=== PATIENT | male | born 1940 | race Caucasian/White ===

== ENCOUNTER 2020-02-12 08:48 | Emergency (ER) | payer MEDICARE, SELFPAY ==
--- NOTE | ~2020-02-12 | XR_ITS ---
EXAMINATION: XR knee LT 2V INDICATION: Left knee pain TECHNIQUE: Two views of the left knee are obtained. COMPARISON: 05/05/2016 FINDINGS: There is no fracture. Chronic moderate osteoarthritis of the knee is stable. Also stable is a moderate size joint effusion. IMPRESSION: 1. Chronic moderate knee joint effusion without acute osseous findings. Reviewed, dictated and finalized at location A.
[2020-02-12 09:14] VITALS: BP 115/80; PULSE 90; RESP 20; TEMP 36.6; O2SAT 98
--- NOTE | 2020-02-12 09:17 | ED.LOWEXIN ---
HPI - Extremity Injury (Lower) General Chief Complaint: Extremity Injury, Lower Stated Complaint: KNEE PAIN Source: patient Mode of arrival: ambulatory Limitations: no limitations History of Present Illness HPI Narrative: Sin 79-year-old gentleman that presents to the emergency department with left knee pain after he fell on his left knee while on sidewalk approximately 1 week ago currently pain is well controlled with Advil that he takes at home, there is some mild swelling, with point tenderness in the lateral aspect of his left knee and posterior knee with no calf swelling no redness no warmth no fever or chills no nausea vomiting. Patient has a history of coronary artery disease with [address] complaint: knee injury Onset (ago): week(s) Type of Injury: blunt Place: street/outdoors Severity: mild Relieving factors: NSAID Exacerbating factors: movement Context: direct blow and walking Associated symptoms: swelling Other symptoms: none Related Data Home Medications Medication Instructions Recorded Confirmed amlodipine [Norvasc] 10 mg PO DAILY 02/12/20 02/12/20 aspirin 81 mg PO DAILY 02/12/20 02/12/20 clopidogrel [Plavix] 75 mg PO DAILY 02/12/20 02/12/20 folic acid 0.8 mg PO DAILY 02/12/20 02/12/20 indomethacin [Indocin] 25 mg PO TID 02/12/20 02/12/20 metoprolol succinate 25 mg PO DAILY 02/12/20 02/12/20 nitroglycerin 0.4 mg SUBLINGUAL Q5-15M PRN 02/12/20 02/12/20 Allergies Allergy/AdvReac Type Severity Reaction Status Date / Time No Known Allergies Allergy Verified 08/04/19 15:45 Review of Systems Review of Systems: All systems reviewed & are unremarkable except as noted in HPI and below PMFSH Past Medical History Medical History CAD (coronary artery disease) Exam Const: General: no acute distress and alert Orientation/consciousness: patient oriented x3 HENMT: Head: normal to inspection Eyes: General: appearance normal, both eyes and all related structures Conjunctivae: conjunctivae normal Pupils: Equal, round and reactive pupils present Neck: Neck: normal visual inspection and no lymphadenopathy Chest: Chest palpation & inspection: normal inspection of the chest Resp: Effort & Inspection: normal respiratory effort Auscultation: clear to auscultation bilaterally Cardio: Rate: regular rate Rhythm: regular rhythm GI: GI Palp: Yes Soft to palpation Back/Spine/Pelvis: Back: no CVA tenderness Skin: General skin exam: normal color Rashes: no rashes Neuro: General: patient oriented x3 Extrem: Other: point tenderness lateral aspect of left knee Psych: Mental Status: mental status grossly normal Critical Care Time Critical Care Time Critical Care Time: No Discharge Plan Discharge Clinical Impression: Knee sprain Qualifiers: Encounter type: initial encounter Involved ligament of knee: unspecified ligament Laterality: left Qualified Code(s): S83.92XA - Sprain of unspecified site of left knee, initial encounter Patient Disposition: Home, Self-Care Condition: Stable Instructions: Antibiotic Form, Knee Sprain (ED) Additional Instructions: continue Abimael wrap, Aleve/ Advil as needed for pain and follow-up with primary care physician as soon as possible further evaluation and treatment. Prescriptions: No Action clopidogrel [Plavix] 75 mg Tablet 75 mg PO DAILY RF: 0 aspirin 81 mg Tablet,Delayed Release (Dr/Ec) 81 mg PO DAILY RF: 0 amlodipine [Norvasc] 10 mg Tablet 10 mg PO DAILY RF: 0 Indocin 25 mg/5 mL Suspension 25 mg PO TID RF: 0 nitroglycerin 0.4 mg Tablet, Sublingual 0.4 mg SUBLINGUAL Q5-15M PRN (Reason: Chest Pain) RF: 0 metoprolol succinate 25 mg Tablet Extended Release 24 Hr 25 mg PO DAILY RF: 0 folic acid 0.8 mg Capsule 0.8 mg PO DAILY RF: 0 pravastatin 40 mg tablet 40 mg PO DAILY Qty: 90 RF: 3 lisinopril-hydrochlorothiazide 20-25 mg tablet 1 tabl
[2020-02-12 09:54] VITALS: BP 100/64; PULSE 76; RESP 18; TEMP 36.5; O2SAT 96
== END 2020-02-12 10:07 | disposition home or self-care (01) ==
PROVIDERS: Emergency Provider Emergency Medicine; PCP Family Medicine
DX: S83.92XA Sprain of unspecified site of left knee, initial encounter (principal); I25.10 Atherosclerotic heart disease of native coronary artery without angina pectoris; W19.XXXA Unspecified fall, initial encounter
CPT/HCPCS: 73560; 99282; 99283

== ENCOUNTER 2021-05-27 15:09 | Outpatient (CLI) | payer MEDICARE, SELFPAY ==
[2021-05-27 15:22] LABS: Hematocrit 40.8 % (37.0-46.0); Hemoglobin 13.7 g/dL (12.4-15.3); Mean Corpuscular HGB Conc 33.6 g/dL (32.0-36.0); Mean Corpuscular Hemoglobin 30.1 pg (27.0-31.0); Mean Corpuscular Volume 89.7 fL (78.0-102.0); Mean Platelet Volume 9.6 fl (8.7-11.0); Platelet Count Result 199 K/mm3 (150-420); Red Blood Count 4.55 M/mm3 (4.70-6.10); Red Cell Distribution Width 13.2 % (11.6-14.4); White Blood Count 7.3 K/mm3 (4.8-10.8)
[2021-05-27 16:07] LABS: Hemoglobin A1C 5.8 % (<5.7)
[2021-05-27 16:08] LABS: Alanine Aminotransferase 24 U/L (16-63); Albumin Level 3.5 g/dL (3.4-5.0); Alkaline Phosphatase 76 U/L (46-116); Anion Gap 9 mmol/L (8-16); Aspartate Amino Transferase 11 U/L (15-37); Bilirubin,Total 0.8 mg/dL (0.00-1.00); Blood Urea Nitrogen 32 mg/dL (7-18); Calcium 8.5 mg/dL (8.5-10.1); Carbon Dioxide 27 mmol/L (21-32); Chloride 106 mmol/L (98-108); Cholesterol 92 mg/dL (0-200); Estimated Glomerular Filt Rate 39; Glucose 112 mg/dL (70-99); HDL Direct 35 mg/dL (40-60); LDL Cholesterol Calculated 38 mg/dL (<130); Osmolality Calculated 301 mOsm/kg (285-295); Potassium 4.3 mmol/L (3.5-5.1); Sodium 142 mmol/L (136-145); Total Protein 7.5 g/dL (6.4-8.2); Triglycerides 94 mg/dL (0-150); Uric Acid 9.1 mg/dL (3.5-7.2)
== END 2021-05-27 15:10 | disposition home or self-care (01) ==
LOC: CHSLAB 15:11
PROVIDERS: PCP Family Medicine; Visit Provider Family Medicine
DX: E78.5 Hyperlipidemia, unspecified (principal); I10 Essential (primary) hypertension; E11.9 Type 2 diabetes mellitus without complications
CPT/HCPCS: 36415; 80053; 80061; 83036; 84550; 85027

== ENCOUNTER 2022-05-31 14:04 | Emergency (ER) | payer MEDICARE, SELFPAY ==
--- NOTE | ~2022-05-31 | XR_ITS ---
EXAM: XR knee LT 2V DATE: 05/31/2022 14:55 HISTORY: pain after a fall. . COMPARISON: 02/12/2020. FINDINGS: Normal mineralization. No fracture or dislocation. No lytic or blastic lesion. Tricompartm ental osteoarthritis of the knee. Patellar enthesopathy. No erosion or periosteal change. Vascular ca lcifications. Moderate volume joint fluid. IMPRESSION: No acute osseous finding in the left knee. Reviewed, dictated and finalized at location K.
--- NOTE | ~2022-05-31 | XR_ITS ---
EXAM: XR wrist LT min 3V DATE: 05/31/2022 14:55 HISTORY: pain and swelling after a fall . COMPARISON: None available. FINDINGS: Normal mineralization. No fracture or dislocation. No lytic or blastic lesion. Scattered d egenerative changes. No erosion or periosteal change. Soft tissues within normal limits. IMPRESSION: No acute osseous finding in the left wrist. Reviewed, dictated and finalized at location K.
--- NOTE | ~2022-05-31 | CT_ITS ---
EXAMINATION: CT diagnostic chest wo con DATE: 05/31/2022 14:54 INDICATION: LEFT SIDE CHEST PAIN AFTER FALL. TECHNIQUE: Computed tomography (CT) of the chest was performed without intravenous contrast. Automate d exposure control and iterative reconstruction technique were employed. The dose-length product was 816.43 mGy-cm. COMPARISON: None. FINDINGS: CHEST: Thoracic aorta: Ectasia moderate arch calcification. Lung parenchyma and airways: Senescent changes. Airways are clear. Thoracic inlet, axillae and chest wall: No thyroid or soft tissue mass. No axillary lymphadenopathy. Mediastinum: No mass or lymphadenopathy. Heart and pericardium: Normal heart size. No pericardial effusion. Coronary artery calcifications: Heavy. Pleura: No effusion or mass. Upper abdomen: No significant finding. Thoracic bones: No acute osseous finding in the chest. Mild anterior wedge deformity at L1 accompanie d by degenerative T12-L1 disc change and superior endplate deformity of L1, likely chronic. IMPRESSION: No acute thoracic process detected. Likely chronic mild anterior wedge compression deformity of L1, u nless accompanied by acute pain/tenderness. Reviewed, dictated and finalized at location K. IMPRESSION: No acute thoracic process detected. Likely chronic mild anterior wedge compress ion deformity of L1, unless accompanied by acute pain/tenderness.
--- NOTE | ~2022-05-31 | CT_ITS ---
EXAMINATION: CT brain wo con DATE: 05/31/2022 14:53 INDICATION: FALL. SWELLING AROUND LEFT ORBIT. . TECHNIQUE: Computed tomography (CT) of the head was performed without intravenous contrast. The mA wa s adjusted according to patient size. Iterative reconstruction technique was employed. The dose-lengt h product was 605.33 mGy-cm. COMPARISON: 06/21/2019. FINDINGS: No acute intracranial hemorrhage or extra-axial fluid collection. Mildly prominent bifrontal extra-ax ial spaces, CSF density, may represent settling, cystic hygroma, or old stable chronic subdural hemor rhages. No hydrocephalus, mass, or herniation. No acute ischemic infarct. Unremarkable dural venous sinus attenuation. No acute osseous abnormality. The aerated spaces are clear. Mild atrophy and chronic white matter change. Atherosclerotic intracranial calcification. Bilateral l ens replacements. IMPRESSION: No acute intracranial process. Reviewed, dictated and finalized at location K.
--- NOTE | ~2022-05-31 | CT_ITS ---
EXAMINATION: CT cervical spine wo con DATE: 05/31/2022 14:53 INDICATION: FALL THIS AM. NECK PAIN. TECHNIQUE: Computed tomography (CT) of the cervical spine was performed without intravenous contrast. Automated exposure control and iterative reconstruction technique were employed. The dose-length pro duct was 617.55 mGy-cm. COMPARISON: 06/21/2019 FINDINGS: Vertebral Body Alignment: Intact. Minimal grade 1 anterolisthesis of C3 on C4 and C4 on C5, presumabl y on a degenerative basis and stable Craniocervical and atlantoaxial alignment: Mild degenerative change with pannus. Alignment intact. Osseous structures/fracture: No evidence of a lytic or blastic process in the visualized spine. No e vidence of acute fracture. Cervical soft tissues: The paraspinal soft tissues planes are maintained. Degenerative changes: Degenerative changes, without severe central canal narrowing. Severe degenerati ve disc disease at C6-7. Severe bilateral neural foraminal narrowing at C5-6 and right narrowing at C 6-7. IMPRESSION: No acute fracture or traumatic malalignment in the cervical spine. Reviewed, dictated and finalized at location K.
[2022-05-31 14:05] VITALS: BP 159/78; PULSE 60; RESP 18; TEMP 36.6; O2SAT 97
--- NOTE | 2022-05-31 14:22 | ED.GENADULT ---
HPI - General Adult General Chief complaint: Fall Stated complaint: fell and hit face and chest trouble breathing Time Seen by Provider: 05/31/22 14:08 History of Present Illness HPI narrative: Rohan is an 82M with a PMH of CAD, HLD, HTN, gout and prediabetes that presented to the ED after a fall several hours ago. He missed the last step and fell on a concrete side walk. He hit his head, chest, left wrist and left knee. There was no LOC. There is no numbness, tingling, weakness or radicular pain. He drove to the ER himself and walked in without assistance. He has no other concerns other than the injuries from the fall. Related Data Allergies Allergy/AdvReac Type Severity Reaction Status Date / Time No Known Allergies Allergy Verified 05/31/22 14:20 Review of Systems Review of Systems: All systems reviewed & are unremarkable except as noted in HPI and below PMFSH Past Medical History Medical History (Updated 05/31/22 @ 16:19 by Marco A Lau DO) CAD (coronary artery disease) Gout Hyperlipidemia Hypertension Overweight Surgical History Surgical History History of coronary artery stent placement 2006 Social History Social History Smoking status: Former smoker Additional smoking assessment comments: Quit smoking 09-03-1975. 25 pk-year history Exam Const: General: healthy appearing and alert Nutritional Appearance: well nourished Orientation/consciousness: patient oriented x3 HENMT: Head: contusion left frontal Other: Left orbital contusion. Neck: Other: NOrmal to inspection. Was looking around the room when he came in. No midline tenderess Chest: Other: TTP on the upper lateral left chest Resp: Effort & Inspection: normal respiratory effort Cardio: Rate: regular rate Rhythm: regular rhythm GI: Other: normal to inspeciton Skin: Other: abrasions on left knee Neuro: General: patient oriented x3 and moves all extremities Extrem: Other: Left medial wrist was TTP Left knee was TTP Psych: Mental Status: mental status grossly normal Course Course Emergency Course: Declined pain meds. Ordered imaging. EXAMINATION: CT brain wo con DATE: 05/31/2022 14:53 INDICATION: FALL. SWELLING AROUND LEFT ORBIT. . TECHNIQUE: Computed tomography (CT) of the head was performed without intravenous contrast. The mA was adjusted according to patient size. Iterative reconstruction technique was employed. The dose-length product was 605.33 mGy-cm. COMPARISON: 06/21/2019. FINDINGS: No acute intracranial hemorrhage or extra-axial fluid collection. Mildly prominent bifrontal extra-axial spaces, CSF density, may represent settling, cystic hygroma, or old stable chronic subdural hemorrhages. No hydrocephalus, mass, or herniation. No acute ischemic infarct. Unremarkable dural venous sinus attenuation. No acute osseous abnormality. The aerated spaces are clear. Mild atrophy and chronic white matter change. Atherosclerotic intracranial calcification. Bilateral lens replacements. IMPRESSION:? No acute intracranial process. EXAMINATION: CT cervical spine wo con DATE: 05/31/2022 14:53 INDICATION: FALL THIS AM. NECK PAIN. TECHNIQUE: Computed tomography (CT) of the cervical spine was performed without intravenous contrast. Automated exposure control and iterative reconstruction technique were employed. The dose-length product was 617.55 mGy-cm. COMPARISON: 06/21/2019 FINDINGS: Vertebral Body Alignment: Intact. Minimal grade 1 anterolisthesis of C3 on C4 and C4 on C5, presumably on a degenerative basis and stable Craniocervical and atlantoaxial alignment: Mild degenerative change with pannus. Alignment intact. Osseous structures/fracture: No evidence of a lytic or blastic process in the visualized spine.? No evidence of acute fracture. Cervical soft tissues: The paraspinal soft tissues planes are maintain
[2022-05-31 15:05] VITALS: BP 142/67; PULSE 59; RESP 16; O2SAT 98
[2022-05-31 16:05] VITALS: BP 132/60; PULSE 63; RESP 16; TEMP 36.7; O2SAT 97
== END 2022-05-31 16:25 | disposition home or self-care (01) ==
PROVIDERS: Emergency Provider Family Medicine; PCP Family Medicine
DX: T14.8XXA Other injury of unspecified body region, initial encounter (principal); W19.XXXA Unspecified fall, initial encounter; I25.10 Atherosclerotic heart disease of native coronary artery without angina pectoris; E78.5 Hyperlipidemia, unspecified; I10 Essential (primary) hypertension; Z87.891 Personal history of nicotine dependence
CPT/HCPCS: 70450; 71250; 72125; 73110; 73560; 99284